=== PATIENT | male | born 1970 | race Caucasian/White ===

== ENCOUNTER 2016-07-09 09:14 | Emergency (ER) | payer SELFPAY ==
[~2016-07-09] VITALS: Ht 180.3 cm; Wt 107.2 kg
[~2016-07-09 09:14] MED LIST: ACET325T14 PO; AMIT25PO14 PO; AMLO10TA4 PO; ASPI-621 PO; ATOR20TA9 PO; BLOOD PRESSURE MED; CEFU500T PO; ERYT250C8 PO; FLUO40CA9 PO; GABA300C10 PO; HYDR-3240 PO; METF10002 PO; METO100T3 PO; OMEP-110 PO; OMEP20TA2 PO; OXYC5TAB3 PO
[2016-07-09] MEDS ORDERED: SODIUM CHLORIDE 0.9% 1,000ML IVBOLUS ONE ×2 (10:00→11:30)
[2016-07-09] MEDS ORDERED: SODIUM CHLORIDE FLUSH 10ML SYR IVF ONE (10:00)
[2016-07-09 10:19] LABS: HEMOGLOBIN 15.7 g/dL (13.7-18.0)
[2016-07-09 10:29] LABS: BLOOD UREA NITROGEN 13 mg/dL (7-18)
[2016-07-09] MEDS ORDERED: INSULIN REGULAR 100 UNITS/ML, 3ML VIAL SQ-INSULIN ONE (11:30)
[2016-07-09 11:44] VITALS: BP 109/70
== END 2016-07-09 13:17 | disposition home or self-care (01) ==
LOC: ED 12:17
DX: E11.65 Type 2 diabetes mellitus with hyperglycemia (principal); F17.210 Nicotine dependence, cigarettes, uncomplicated; E66.9 Obesity, unspecified; F32.9 Major depressive disorder, single episode, unspecified; I10 Essential (primary) hypertension
CPT/HCPCS: 36415; 80048; 81003; 82010; 82040; 82800; 82962; 83036; 85025; 93005; 96360; 96361; 96372; 99285; J7030

== ENCOUNTER 2017-10-08 10:50 | Inpatient (IN) | payer SELFPAY ==
[~2017-10-08] VITALS: Ht 180.3 cm; Wt 101.1 kg
[~2017-10-08 10:50] MED LIST changes: -METO100T3 PO; +METO100T7 PO; -OMEP20TA2 PO; +OMEP20TA9 PO
[2017-10-08] MEDS ORDERED: METF500T5 PO (11:21)
[2017-10-08] MEDS ORDERED: ANTIDEPRESSANT (11:21)
[2017-10-08] MEDS ORDERED: SODIUM CHLORIDE FLUSH 10ML SYR IVF ONE (11:30)
[2017-10-08] MEDS ORDERED: KETOROLAC 30 MG/1 ML ONE (11:44)
[2017-10-08 11:55] LABS: ALBUMIN 3.2 g/dL (3.4-5.0); CALCIUM 8.8 mg/dL (8.5-10.1); CHLORIDE 91 mmol/L (98-107)
[2017-10-08] MEDS ORDERED: KETOROLAC 30 MG/1 ML IVPush ONE (12:00)
[2017-10-08 12:08] LABS: ALANINE AMINOTRANSFERASE 39 U/L (12-78); ALKALINE PHOSPHATASE 234 U/L (45-117); ANION GAP 7 mmol/L (5-15); BILIRUBIN,TOTAL 2.4 mg/dL (0.2-1.0); CREATININE 1.47 mg/dL (0.7-1.3); TOTAL PROTEIN 8.6 g/dL (6.4-8.2)
[2017-10-08 12:09] LABS: BASOPHILS # (AUTO) 0.07 x10^3/uL (0-0.1); BASOPHILS % (AUTO) 1 % (0-1); EOSINOPHILS # (AUTO) 0.11 x10^3/uL (0-0.4); EOSINOPHILS % (AUTO) 1 % (1-7); LYMPHOCYTES # (AUTO) 3.19 x10^3/uL (1-3.4); LYMPHOCYTES % (AUTO) 25 % (22-44); MD NO; MEAN CORPUSCULAR HEMOGLOBIN 26.2 pg (27.5-34.5); MEAN CORPUSCULAR HGB CONC 32.7 g/dL (33.2-36.2); MEAN CORPUSCULAR VOLUME 80.1 fL (81-97); MEAN PLATELET VOLUME 10.1 fL (7.4-10.4); MONOCYTES # (AUTO) 0.86 x10^3/uL (0.2-0.8); MONOCYTES % (AUTO) 7 % (2-9); NEUTROPHILS # (AUTO) 8.65 x10^3/uL (1.8-6.8); NEUTROPHILS % (AUTO) 67 % (42-75); PLATELET COUNT 205 x10^3/uL (130-400); RED BLOOD COUNT 6.46 x10^6/uL (4.38-5.82); RED CELL DISTRIBUTION WIDTH 15.6 % (9.4-14.8)
[2017-10-08] MEDS ORDERED: INSULIN REGULAR 100 UNITS/ML, 3ML VIAL IVPush ONE (12:30)
[2017-10-08] MEDS ORDERED: INSULIN REGULAR 100 UNITS/ML, 3ML VIAL ONE (12:30)
[2017-10-08] MEDS ORDERED: OMNIPAQUE 350 MG/ML, 100ML BOTTLE ONE (13:01)
[2017-10-08] MEDS ORDERED: SODIUM CHLORIDE 0.9% 1,000ML IVBOLUS ONE (13:30)
[2017-10-08] MEDS ORDERED: AZITHROMYCIN 500 MG in SODIUM CHLORIDE 0.9% 250 ML IV ONE (13:30)
[2017-10-08] MEDS ORDERED: CEFTRIAXONE PMX 1GM/50ML 50 ML IV ONE (13:30)
[2017-10-08] MEDS ORDERED: CEFTRIAXONE PMX 1GM/50ML 50 ML ONE (13:42)
[2017-10-08] MEDS ORDERED: ONDANSETRON 2MG/ML, 2ML IVPush PRN (14:30)
[2017-10-08] MEDS ORDERED: NITROGLYCERIN 0.4 MG/SPRAY SL PRN (14:30)
[2017-10-08] MEDS ORDERED: BISACODYL 10 MG SUPP PR PRN (14:30)
[2017-10-08] MEDS: HEPARIN 5,000 UNITS/ML, 1ML SQ SCH ×2 (14:30→22:30)
[2017-10-08] MEDS ORDERED: DEXTROSE 50%, 50ML SYRINGE IVPush PRN (14:30)
[2017-10-08] MEDS ORDERED: ONDANSETRON ODT 4 MG PO PRN (14:30)
[2017-10-08] MEDS ORDERED: ACETAMINOPHEN 325 MG TABLET PO PRN (14:30)
[2017-10-08] MEDS ORDERED: DEXTROSE 4 GM TAB.CHEW PO PRN (14:30)
[2017-10-08] MEDS ORDERED: hydrALAzine 20 MG/ML, 1ML IVPush PRN (14:30)
[2017-10-08] MEDS ORDERED: DOCUSATE 100 MG CAPSULE PO PRN (14:30)
[2017-10-08] MEDS ORDERED: GLUCAGON 1 MG IM PRN (14:30)
[2017-10-08] MEDS ORDERED: LIDODERM 5% PATCH TD SCH (14:30)
[2017-10-08] MEDS ORDERED: AZITHROMYCIN 500 MG in SODIUM CHLORIDE 0.9% 250 ML IV SCH (14:30)
[2017-10-08] MEDS ORDERED: POLYETHYLENE GLYCOL 17 GM PACKET PO PRN (14:30)
[2017-10-08] MEDS ORDERED: NITROGLYCERIN 0.4 MG BOTTLE (25 TABS) SL PRN (14:30)
[2017-10-08] MEDS ORDERED: NICOTINE 21 MG/24 HR PATCH.TD24 TD SCH (14:30)
[2017-10-08 14:52] LABS: TROPONIN I < 0.015 ng/mL (0.000-0.045)
[2017-10-08] MEDS: PANTOPROZOLE 40MG TABLET PO SCH ×2 (15:00→16:41)
[2017-10-08] MEDS ORDERED: MAALOX/HYOSCYAMINE/LIDOCAINE 45 ML BTL PO PRN (15:00)
[2017-10-08 15:05] LABS: HEMOGLOBIN A1C 12.5 % (4.2-6.3)
[2017-10-08] MEDS ORDERED: CITA20TA9 PO (15:06)
[2017-10-08] MEDS ORDERED: TRAZ50TA18 PO (15:06)
[2017-10-08] MEDS: GUAIFENESIN 200 MG TABLET PO SCH ×3 (16:00→21:00)
[2017-10-08 16:27] VITALS: BP 115/82
[2017-10-08] MEDS: DOXYCYCLINE 100 MG in DEXTROSE 5% 250 ML IV SCH (17:03)
[2017-10-08] MEDS: INSULIN LISPRO 100 UNITS/ML, PEN SQ-INSULIN SCH ×2 (17:45→21:53)
[2017-10-08 20:00] VITALS: BP_SYST 127; BP_SYST 129; BP_DIAS 84; BP_DIAS 85
[2017-10-08] MEDS ORDERED: SODIUM CHLORIDE FLUSH 10ML SYR IVF SCH (21:00)
[2017-10-08] MEDS ORDERED: INSULIN GLARGINE 100 UNITS/ML, PEN SQ-INSULIN SCH (21:00)
[2017-10-09 02:00] VITALS: BP 115/80
[2017-10-09] MEDS ORDERED: CEFTRIAXONE PMX 1GM/50ML 50 ML IV SCH (02:00)
[2017-10-09] MEDS: PANTOPROZOLE 40MG TABLET PO SCH (03:00)
[2017-10-09] MEDS: DOXYCYCLINE 100 MG in DEXTROSE 5% 250 ML IV SCH (05:13)
[2017-10-09] MEDS: GUAIFENESIN 200 MG TABLET PO SCH (05:21)
[2017-10-09] MEDS ORDERED: ASPIRIN 325 MG TABLET EC PO SCH (06:00)
[2017-10-09] MEDS: HEPARIN 5,000 UNITS/ML, 1ML SQ SCH (06:30)
[2017-10-09 06:32] VITALS: BP 121/76
== END 2017-10-09 08:01 | disposition left against medical advice (07) | DRG 871 ==
LOC: ED 13:39 → EDIP 13:41 → 4EST 15:21
PROVIDERS: ADMIT Internal Medicine; ATTEND Internal Medicine
DX: A41.9 Sepsis, unspecified organism (principal); J96.01 Acute respiratory failure with hypoxia; J18.9 Pneumonia, unspecified organism; E44.1 Mild protein-calorie malnutrition; E87.1 Hypo-osmolality and hyponatremia; J90 Pleural effusion, not elsewhere classified; D75.89 Other specified diseases of blood and blood-forming organs; E66.9 Obesity, unspecified; F17.210 Nicotine dependence, cigarettes, uncomplicated; Z66 Do not resuscitate; N20.0 Calculus of kidney; K21.9 Gastro-esophageal reflux disease without esophagitis; E11.65 Type 2 diabetes mellitus with hyperglycemia; I45.10 Unspecified right bundle-branch block; K59.00 Constipation, unspecified; Z91.19 Patient's noncompliance with other medical treatment and regimen; Z53.21 Procedure and treatment not carried out due to patient leaving prior to being seen by health care provider; Z71.6 Tobacco abuse counseling; I12.9 Hypertensive chronic kidney disease with stage 1 through stage 4 chronic kidney disease, or unspecified chronic kidney disease; N18.9 Chronic kidney disease, unspecified
CPT/HCPCS: 36415; 71045; 71275; 76700; 80053; 82962; 83036; 83605; 83735; 84145; 84443; 84484; 85025; 87040; 93005; J0456; J0696; J1885; J7060; Q9967; J1815; J7030; J7050

== ENCOUNTER 2018-01-09 15:03 | Emergency (ER) | payer SELFPAY ==
[~2018-01-09] VITALS: Ht 180.3 cm; Wt 105.6 kg
[~2018-01-09 15:03] MED LIST changes: +AMOX1TAB64 PO; +ANTIDEPRESSANT; +BENZ-17 PO; +CITA20TA9 PO; +DOXY100T10 PO; +METF500T17 PO; +TRAZ-136 PO
[2018-01-09 15:05] VITALS: BP 176/110
[2018-01-09] MEDS ORDERED: KETOROLAC 30 MG/1 ML IM ONE (15:30)
[2018-01-09] MEDS ORDERED: KETOROLAC 30 MG/1 ML ONE (15:34)
== END 2018-01-09 16:02 | disposition home or self-care (01) ==
LOC: ED 15:56
DX: R51 Headache (principal); I10 Essential (primary) hypertension
CPT/HCPCS: 96372; 99283; J1885; 82962

== ENCOUNTER 2018-09-20 10:29 | Emergency (ER) | payer OTHER ==
[~2018-09-20] VITALS: Ht 180.3 cm; Wt 96.2 kg
[~2018-09-20 10:29] MED LIST changes: -ASPI-621 PO; +ASPI81TA45 PO; +ATOR20TA37 PO; -ATOR20TA9 PO; -TRAZ-136 PO; +TRAZ50TA66 PO
[2018-09-20] MEDS ORDERED: KETOROLAC 30 MG/1 ML ONE (11:53)
[2018-09-20] MEDS ORDERED: OXYcodone/APAP 10/325MG TABLET ONE (11:54)
[2018-09-20] MEDS ORDERED: KETOROLAC 30 MG/1 ML IM ONE (12:00)
[2018-09-20] MEDS ORDERED: OXYcodone/APAP 10/325MG TABLET PO ONE (12:00)
--- NOTE | 2018-09-20 12:41 | NUR ---
[facility] ORDERLY AT BEDSIDE TO DRAW LABS. PT UPDATED ON POC
[2018-09-20 12:46] LABS: PH, VENOUS 7.401 pH (7.320-7.420)
[2018-09-20 12:58] LABS: ANION GAP 6 mmol/L (5-15); CALCIUM 9.1 mg/dL (8.5-10.1); CHLORIDE 101 mmol/L (98-107)
[2018-09-20] MEDS ORDERED: INSULIN SINGLE DOSE, ER SQ-INSULIN ONE (13:29)
[2018-09-20] MEDS ORDERED: INSULIN REGULAR 100 UNITS/ML, 3ML VIAL SQ-INSULIN ONE (13:30)
[2018-09-20 14:01] VITALS: BP 144/90
== END 2018-09-20 14:03 | disposition home or self-care (01) ==
LOC: ED 13:14
DX: S22.32XA Fracture of one rib, left side, initial encounter for closed fracture (principal); E11.65 Type 2 diabetes mellitus with hyperglycemia; I10 Essential (primary) hypertension; V59.40XA Driver of pick-up truck or van injured in collision with unspecified motor vehicles in traffic accident, initial encounter; Y93.89 Activity, other specified; Y92.009 Unspecified place in unspecified non-institutional (private) residence as the place of occurrence of the external cause; Y99.8 Other external cause status
CPT/HCPCS: 71046; 80048; 82803; 82962; 96372; 99284; J1885

== ENCOUNTER 2019-05-19 14:31 | Emergency (ER) | payer SELFPAY ==
[~2019-05-19] VITALS: Ht 180.3 cm; Wt 101.7 kg
[~2019-05-19 14:31] MED LIST changes: -DOXY100T10 PO; +DOXY100T23 PO
[2019-05-19 14:50] VITALS: BP 168/115
[2019-05-19] MEDS ORDERED: METHOCARBAMOL 750 MG TABLET ONE (15:49)
[2019-05-19] MEDS ORDERED: KETOROLAC 30 MG/1 ML ONE (15:49)
[2019-05-19] MEDS ORDERED: KETOROLAC 30 MG/1 ML IM ONE (16:00)
[2019-05-19] MEDS ORDERED: METHOCARBAMOL 750 MG TABLET PO ONE (16:00)
== END 2019-05-19 16:58 | disposition home or self-care (01) ==
LOC: ED 15:31
DX: S39.012A Strain of muscle, fascia and tendon of lower back, initial encounter (principal); M54.41 Lumbago with sciatica, right side; I10 Essential (primary) hypertension; E11.9 Type 2 diabetes mellitus without complications; F17.200 Nicotine dependence, unspecified, uncomplicated; K21.9 Gastro-esophageal reflux disease without esophagitis; X58.XXXA Exposure to other specified factors, initial encounter; Y93.89 Activity, other specified; Y92.89 Other specified places as the place of occurrence of the external cause; Y99.8 Other external cause status
CPT/HCPCS: 72110; 96372; 99283; J1885

== ENCOUNTER 2019-06-05 18:21 | Emergency (ER) | payer SELFPAY ==
[~2019-06-05] VITALS: Ht 180.3 cm; Wt 102.0 kg
[2019-06-05 18:26] VITALS: BP 189/123
--- NOTE | 2019-06-05 19:26 | NUR ---
PA AT BEDSIDE TO UPDATE PT ON POC.
== END 2019-06-05 19:28 | disposition home or self-care (01) ==
LOC: ED 18:30
DX: J01.10 Acute frontal sinusitis, unspecified (principal); B96.89 Other specified bacterial agents as the cause of diseases classified elsewhere; E11.65 Type 2 diabetes mellitus with hyperglycemia; I10 Essential (primary) hypertension; K21.9 Gastro-esophageal reflux disease without esophagitis
CPT/HCPCS: 82962; 99283

== ENCOUNTER 2020-11-03 14:05 | Emergency (ER) | payer SELFPAY ==
[~2020-11-03] VITALS: Ht 180.3 cm; Wt 98.1 kg
[~2020-11-03 14:05] MED LIST changes: +ERYT250C37 PO; -ERYT250C8 PO; +HYDR-2214 PO; -HYDR-3240 PO; -OXYC5TAB3 PO; +OXYC5TAB98 PO
--- NOTE | 2020-11-03 14:14 | NUR ---
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
--- NOTE | 2020-11-03 15:18 | NUR ---
report from reji ramos md was in room, awaiting lab work. nad. as
--- NOTE | 2020-11-03 15:26 | NUR ---
pt sts has htn hx and supposed to take meds but doesnt. doesnt know names of meds. awaiting ct. as
[2020-11-03 15:30] LABS: BASOPHILS % (AUTO) 1 % (0-1); EOSINOPHILS % (AUTO) 2 % (1-7); HCT (SEDRATE) 47.2 % (39.2-51.8); LYMPHOCYTES % (AUTO) 34 % (22-44); MEAN CORPUSCULAR HEMOGLOBIN 25.3 pg (27.5-34.5); MEAN PLATELET VOLUME 8.1 fL (7.4-10.4); MONOCYTES % (AUTO) 7 % (2-9); NEUTROPHILS % (AUTO) 56 % (42-75); PLATELET COUNT 183 x10^3/uL (130-400); RED BLOOD COUNT 6.18 x10^6/uL (4.38-5.82); RED CELL DISTRIBUTION WIDTH 16.2 % (9.4-14.8)
--- NOTE | 2020-11-03 15:30 | NUR ---
arabella wolfe bp. as
[2020-11-03 15:39] LABS: ALBUMIN 3.1 g/dL (3.4-5.0); ANION GAP 6 mmol/L (5-15); CALCIUM 8.6 mg/dL (8.5-10.1); CHLORIDE 102 mmol/L (98-107)
[2020-11-03] MEDS ORDERED: HYDROcodone/APAP 5/325 TABLET PO ONE (16:00)
[2020-11-03] MEDS ORDERED: HYDROcodone/APAP 5/325 TABLET ONE (16:17)
--- NOTE | 2020-11-03 16:30 | NUR ---
pt medicated for pain and bp. pt asking to leave, told that he does not have dc papers yet. as
[2020-11-03 17:26] VITALS: BP 151/108
== END 2020-11-03 17:31 | disposition home or self-care (01) ==
LOC: ED 16:21
DX: I10 Essential (primary) hypertension (principal); E11.65 Type 2 diabetes mellitus with hyperglycemia; R51.9 Headache, unspecified; F17.210 Nicotine dependence, cigarettes, uncomplicated
CPT/HCPCS: 36415; 70450; 80048; 82040; 85025; 85651; 99284

== ENCOUNTER 2020-11-06 15:19 | Emergency (ER) | payer SELFPAY ==
[~2020-11-06] VITALS: Ht 175.3 cm; Wt 100.0 kg
[2020-11-06 16:14] LABS: BASOPHILS % (AUTO) 0 % (0-1); EOSINOPHILS % (AUTO) 2 % (1-7); LYMPHOCYTES % (AUTO) 31 % (22-44); MEAN CORPUSCULAR HEMOGLOBIN 25.5 pg (27.5-34.5); MEAN PLATELET VOLUME 8.4 fL (7.4-10.4); MONOCYTES % (AUTO) 6 % (2-9); NEUTROPHILS % (AUTO) 62 % (42-75); PLATELET COUNT 207 x10^3/uL (130-400); RED BLOOD COUNT 6.42 x10^6/uL (4.38-5.82); RED CELL DISTRIBUTION WIDTH 16.3 % (9.4-14.8)
[2020-11-06 16:24] LABS: ALANINE AMINOTRANSFERASE 41 U/L (12-78); ALBUMIN 3.1 g/dL (3.4-5.0); ANION GAP 4 mmol/L (5-15); CALCIUM 8.4 mg/dL (8.5-10.1); CHLORIDE 102 mmol/L (98-107); CREATININE 1.08 mg/dL (0.7-1.3)
[2020-11-06 16:27] LABS: ALKALINE PHOSPHATASE 212 U/L (45-117); BILIRUBIN,TOTAL 0.7 mg/dL (0.2-1.0); TOTAL PROTEIN 7.7 g/dL (6.4-8.2)
--- NOTE | 2020-11-06 18:21 | NUR ---
ZABRINA MYRICK MD AT BEDSIDE
[2020-11-06 18:33] VITALS: BP 124/74
== END 2020-11-06 18:36 | disposition home or self-care (01) ==
LOC: ED 18:23
DX: H54.3 Unqualified visual loss, both eyes (principal); E11.65 Type 2 diabetes mellitus with hyperglycemia; I10 Essential (primary) hypertension; K21.9 Gastro-esophageal reflux disease without esophagitis
CPT/HCPCS: 36415; 80053; 85025; 99283